=== PATIENT | male | born 1990 | race Caucasian/White ===

== ENCOUNTER 2016-03-12 14:56 | Emergency (ER) | payer SELFPAY ==
[2016-03-12 15:09] VITALS: TEMP 97.6; BMI 26.6
[2016-03-12 15:15] VITALS: PULSE 80
[2016-03-12] MEDS ORDERED: MORPHINE 4 MG/ML INJECTION IV ONE (15:15)
[2016-03-12] MEDS ORDERED: ONDANSETRON HCL 4 MG/2 ML VIAL IV ONE (15:15)
--- NOTE | 2016-03-12 15:36 | EDPRACDOC ---
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 HE SAID THAT ROOF WAS 10 TO 15 FEET. PT C/O LOW BACK PAIN. THE PT SAID THAT HE FEELS TINGLY IN HIS ANKLES. HE MAY HAVE HAD A LOC, BUT HE IS UNSURE. Pain Severity: Reports: Moderate Injuries/Pain Location: Reports: neck, back Reason for Fall: Reports: lost balance Loss of Consciousness: unsure Allergies/Adverse Reactions: Allergies No Known Allergies Allergy (Verified 11/23/15 19:46) Home Medications: Ambulatory Orders Diazepam [Valium] 5 mg PO BID #10 tablet 03/12/16 Ibuprofen 800 mg PO Q8H PRN #20 tablet 03/12/16 Oxycodone HCl [Roxicodone] 5 mg PO Q6H #15 tablet 03/12/16 Prednisone [Deltasone, Orasone] 1 tabs PO BID #18 tab 03/12/16 ED Past Medical History - Patient Medical History Respiratory History: Reports: Cough Psychological History: Reports: Depression, Bipolar Disorder Additional Past Medical History: CROHN'S DISEASE, CERVICAL FX LAST YEAR Surgical History: Reports: Tonsillectomy/Adnoidectomy, Other (CERVICAL SPINE FX REPAIR) - Social Medical History Smoking Status: Former smoker ETOH: Social Substance Abuse: None Lives In: Home EDM Review of Systems - Review of Systems ROS Negative Except as Marked: Yes All systems reviewed and were negative except as marked Musculoskeletal: Back - Physical Exam Constitutional: Alert (Awake), No apparent distress Oriented to: Time, Person, Place Last recorded Vital Signs: Last Vital Signs Temp 97.6 F 03/12/16 15:14 Pulse 80 03/12/16 15:14 Resp 16 03/12/16 15:14 BP 141/61 03/12/16 15:14 Pulse Ox 98 03/12/16 15:14 Oxygen Pulse Oxygen Saturation 98 O2 Device Room Air Oxygen Flow Rate Fraction of Inspired Oxygen ( FIO2) - HEENT Head: Normal ( normocephalic) Eye Exam: Normal (PERRL, EOMI, Sclera white) Oropharynx: Normal (Pharynx:Moist without exudate,Gums-no swelling) ENT EAC: Normal TMJ: Normal Nose: No Symptoms Reported (septum midline) Neck: In Collar, Limited ROM, Paraspinal Tenderness - Respiratory/Cardiovascular Respiratory: Normal - CTA (BBS clear to auscultation without adventitious sounds ) Cardiovascular: Normal (RRR without murmur, gallop or rub) - GI Auscultation: Normal (NABS) Palpation: Normal (Soft,No rebound or guarding, non distended) Tenderness: Non tender Licona's Sign: Negative - Musculoskeletal Back: Lumbar TTP Extremities: Normal (Normal tone, Pulses 2+ No cyanosis or edema, FROM) - Integumentary Skin: Normal, Warm, Dry Lymphatics: Normal (no adenopathy) - Neurologic Memory Impaired: Normal Motor Function: Normal (Normal tone, Pulses 2+ No cyanosis or edema, FROM) Cranial Nerve: Normal (CN II-X11 intact sensation, strength 5/5) Cerebellar: Normal Mood Description: Normal Thought: Coherent Perception: Normal - Re-evaluation Re-evaluation 1 Re-evaluation Time: 17:08 (IMPROVED) - Diagnostic Imaging Head Image interpreted by: Radiologist CT head: Study within normal limits. C-spine Image interpreted by: Radiologist CT cervical spine: No fracture or spondylolisthesis. No appreciable arthropathy. Abdomen Image interpreted by: Radiologist No acute intra-abdominal or intrapelvic abnormalities. 2 mm nonobstructing mid RIGHT renal calculus. Decision Time to Discharge: 17:08 - Departure Yes I personally saw and evaluated the patient. Disposition: Home Condition: Fair Final Diagnosis: Accidental fall, Lumbar radicular pain Instructions: RICE: Routine Care for Injuries, Lumbar Radiculopathy (ED), Cervical Strain (ED) Education/Counseling Given To: Patient Education/Counseling Given Regarding: Diagnosis, Treatment, Follow Up Referrals: None,No Provider [Primary Care Provider] - One Week Jef Wills MD [Staff Physician] - One Week Prescriptions: Diazepam [Valium] 5 mg PO BID #10 tablet Ibuprofen 800 mg PO Q8H PRN #20 tablet PRN Reason: Pain Oxycodone HCl [Roxicodone] 5 mg PO Q6H #15 tablet Prednisone [Deltasone, Orasone] 1 tabs PO BID #18 tab
[2016-03-12] MEDS ORDERED: Pharmacy Review for Metformin - IV Contrast Given SCH (16:00)
[2016-03-12] MEDS ORDERED: HYDROmorphone 1 MG INJECTION IV ONE (16:49)
[2016-03-12] MEDS ORDERED: METHYLPREDNISOLONE 125 MG/2 ML VIAL IV ONE (16:49)
--- NOTE | 2016-03-12 16:54 | DIRPT ---
CLINICAL DATA: Fell from roof of his mobile home, pain, history Crohn's disease EXAM: CT ABDOMEN AND PELVIS WITH CONTRAST TECHNIQUE: Multidetector CT imaging of the abdomen and pelvis was performed using the standard protocol following bolus administration of intravenous contrast. Sagittal and coronal MPR images reconstructed from axial data set. CONTRAST: 100 cc Isovue 370 IV. No oral contrast administered. COMPARISON: 05/16/2014 FINDINGS: Lung bases clear. 2 mm nonobstructing calculus mid RIGHT kidney. Liver, spleen, gallbladder, pancreas, kidneys, and adrenal glands otherwise normal appearance. Question appendix coiled adjacent to tip of cecum. Stomach and bowel loops unremarkable. Bladder and ureters normal appearance. No mass, adenopathy, free air, free fluid, hernia, or inflammatory process. Scattered Schmorl's nodes without acute bony abnormalities. Partial sacralization LEFT L5. IMPRESSION: No acute intra-abdominal or intrapelvic abnormalities. 2 mm nonobstructing mid RIGHT renal calculus. Electronically Signed By: Adis Taylor M.D. On: 03/12/2016 16:51
--- NOTE | 2016-03-12 17:00 | DIRPT ---
CLINICAL DATA: Pain following fall EXAM: CT HEAD WITHOUT CONTRAST CT CERVICAL SPINE WITHOUT CONTRAST TECHNIQUE: Multidetector CT imaging of the head and cervical spine was performed following the standard protocol without intravenous contrast. Multiplanar CT image reconstructions of the cervical spine were also generated. COMPARISON: Head CT November 30, [address] August 24, 2015 FINDINGS: CT HEAD FINDINGS The ventricles are normal in size and configuration. There is a small cavum septum pellucidum, an anatomic variant. There is no intracranial mass, hemorrhage, extra-axial fluid collection, or midline shift. Sandoval-white compartments are normal. No acute infarct evident. Bony calvarium appears intact. The mastoid air cells are clear. No intraorbital lesions are identified. CT CERVICAL SPINE FINDINGS There is no fracture or spondylolisthesis. Prevertebral soft tissues and predental space regions are normal. Disc spaces appear normal. No nerve root edema or effacement. No disc extrusion or stenosis. IMPRESSION: CT head: Study within normal limits. CT cervical spine: No fracture or spondylolisthesis. No appreciable arthropathy. Electronically Signed By: Denzel Fink III, M.D. On: 03/12/2016 16:58
[2016-03-12 17:26] VITALS: BP 127/73
== END 2016-03-12 17:25 | disposition home or self-care (01) ==
LOC: ED 14:56
DX: M54.16 Radiculopathy, lumbar region (principal)
CPT/HCPCS: 70450; 72125; 74177; 96374; 96375; 99283; A9698; J1170; J2270; J2405; J2930